=== PATIENT | male | born 1980 | race Caucasian/White ===

== ENCOUNTER 2018-01-21 13:47 | Inpatient (IN) | payer OTHER ==
[2018-01-21 14:07] VITALS: BMI 28.8
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
[2018-01-21] MEDS ORDERED: IBUPROFEN 400 MG TABLET (FP) PO PRN (14:31)
[2018-01-21] MEDS ORDERED: MAGNESIUM CITRATE 300 ML BOTTLE PO PRN (14:31)
[2018-01-21] MEDS ORDERED: ACETAMINOPHEN 325 MG TABLET (FP) PO PRN (14:31)
[2018-01-21] MEDS ORDERED: MENTHOL/PHENOL 1 EACH UD MM PRN (14:31)
[2018-01-21] MEDS ORDERED: P-EPHED 60MG/TRIPROLIDI 2.5MG TABLET PO PRN (14:31)
[2018-01-21] MEDS ORDERED: guaiFENesin/D-METHORPHAN HB 10 ML UNIT-DOSE CUPS PO PRN (14:31)
[2018-01-21] MEDS ORDERED: MAG HYDROX/AL HYDROX/SIMETH 30 ML UNIT-DOSE CUP PO PRN (14:31)
[2018-01-21] MEDS ORDERED: MAGNESIUM HYDROX 2400MG/30ML ORAL SUSPENSION 30 ML CUP PO PRN (14:31)
[2018-01-21] MEDS ORDERED: METHADONE HCL 10 MG TABLET (FOR DETOX USE ONLY) PO ONE ×2 (15:30→23:00)
[2018-01-21] MEDS: diazePAM 5 MG TABLET PO PRN ×2 (17:52→22:58)
[2018-01-21] MEDS: NICOTINE 14 MG/24 HOURS TOPICAL PATCH TD SCH (17:58)
[2018-01-21] MEDS: THIAMINE HCL 100 MG TABLET (FP) PO SCH (22:54)
[2018-01-21] MEDS: MELATONIN 5 MG TABLETS PO PRN (22:55)
[2018-01-21 23:11] LABS: URINE APPEARANCE CLEAR; URINE BILIRUBIN NEGATIVE (<2.0 mg/dL); URINE COLOR YELLOW; URINE GLUCOSE (UA) NEGATIVE (NEGATIVE); URINE KETONE NEGATIVE (NEGATIVE); URINE LEUK ESTERASE NEGATIVE (NEGATIVE); URINE NITRITE NEGATIVE (NEGATIVE); URINE PROTEIN NEGATIVE (NEGATIVE); URINE UROBILINOGEN NEGATIVE mg/dL (0.2-1.0)
[2018-01-22] MEDS ORDERED: METHADONE HCL 10 MG TABLET (FOR DETOX USE ONLY) PO ONE (10:00)
[2018-01-22] MEDS: PRENATAL VITAMINS W/ FOLIC ACID TABLET (FP) PO SCH (10:07)
[2018-01-22] MEDS: diazePAM 5 MG TABLET PO PRN ×2 (10:07→22:10)
[2018-01-22] MEDS: NICOTINE 14 MG/24 HOURS TOPICAL PATCH TD SCH (10:08)
[2018-01-22 12:13] LABS: HEMATOCRIT 45.4 % (35.4-49); HEMOGLOBIN 14.5 GM/dL (11.7-16.9); MCH 28.6 pg (25.7-33.7); MEAN CELL VOLUME 89.1 fl (80-96); PLATELET COUNT 275 K/MM3 (134-434); RBC 5.09 M/mm3 (4.00-5.60); RDW 13.7 % (11.9-15.9); WHITE BLOOD COUNT 6.1 K/mm3 (4.0-10.0)
[2018-01-22 12:20] LABS: ALBUMIN 3.3 g/dl (3.4-5.0); ALK PHOS 54 U/L (45-117); ANION GAP 5 MMOL/L (8-16); BILIRUBIN,TOTAL 0.7 mg/dL (0.2-1); BLOOD UREA NITROGEN 7 mg/dL (7-18); CALCIUM 8.9 mg/dL (8.5-10.1); CHLORIDE 103 mmol/L (98-107); CO2 31 mmol/L (21-32); CREATININE 0.8 mg/dL (0.55-1.3); GLUCOSE,RANDOM 86 mg/dL (74-106); POTASSIUM 4.3 mmol/L (3.5-5.1); SGOT/AST 33 U/L (15-37); SGPT/ALT 37 U/L (13-61); SODIUM 139 mmol/L (136-145); TOT PROT 6.7 g/dl (6.4-8.2)
--- NOTE | 2018-01-22 12:44 | PN ---
S COWS - Scale Resting Pulse: 0= [place] 80 or Below Sweatin=Flushed/Facial Moisture Restless Observation: 1= Difficult to Sit Still Pupil Size: 0= Normal to Room Light Bone or Joint Aches: 2= Severe Diffuse Aches Runny Nose/ Eye Tearin= Runny Nose/Eyes GI Upset > 30mins: 1= Stomach Cramp Tremor Observation of Outstretched Hands: 2= Slight Tremor Visible Yawning Observation: 2= >3x During Session Anxiety or Irritability: 2=Irritable/Anxious Goose Flesh Skin: 3=Piloerection COWS Score: 17 S Progress Note (SOAP) Subjective: irritable agitation anxiety chills sweats shakes interrupted sleep restless Objective: 01/22/18 12:43 Vital Signs Temperature 98.2 F 01/22/18 09:38 Pulse Rate 64 01/22/18 09:38 Respiratory Rate 16 01/22/18 09:38 Blood Pressure 150/94 01/22/18 09:38 O2 Sat by Pulse Oximetry (%) Laboratory Tests 01/21/18 01/22/18 01/22/18 22:00 07:50 07:50 WBC RBC Hgb Hct MCV MCH MCHC RDW Plt Count MPV Sodium 139 Potassium 4.3 Chloride 103 Carbon Dioxide 31 Anion Gap 5 L BUN 7 Creatinine 0.8 Creat Clearance w eGFR > 60 Random Glucose 86 Calcium 8.9 Total Bilirubin 0.7 AST 33 ALT 37 Alkaline Phosphatase 54 Total Protein 6.7 Albumin 3.3 L Urine Color Yellow Urine Appearance Clear Urine pH 7.0 Ur Specific [place] 1.017 Urine Protein Negative Urine Glucose (UA) Negative Urine Ketones Negative Urine Blood Negative Urine Nitrite Negative Urine Bilirubin Negative Urine Urobilinogen Negative Ur Leukocyte Esterase Negative RPR Titer Nonreactive 01/22/18 08:00 WBC 6.1 RBC 5.09 Hgb 14.5 Hct 45.4 MCV 89.1 MCH 28.6 MCHC 32.0 RDW 13.7 Plt Count 275 MPV 7.0 L Sodium Potassium Chloride Carbon Dioxide Anion Gap BUN Creatinine Creat Clearance w eGFR Random Glucose Calcium Total Bilirubin AST ALT Alkaline Phosphatase Total Protein Albumin Urine Color Urine Appearance Urine pH Ur Specific [place] Urine Protein Urine Glucose (UA) Urine Ketones Urine Blood Urine Nitrite Urine Bilirubin Urine Urobilinogen Ur Leukocyte Esterase RPR Titer aaox3 ambulating no acute distress Assessment: 01/22/18 12:43 withdrawal sx Plan: continue detox increase fluids methadone regimen was decreased by 15mg dose not as per pt; however, [employer] added the 15mg dose as per methadone regimen and pt has been made aware and in agreement.
[2018-01-22] MEDS: cloNIDine HCL 0.1 MG TABLET PO SCH ×2 (13:42→22:10)
[2018-01-22] MEDS: MELATONIN 5 MG TABLETS PO PRN (22:10)
[2018-01-22] MEDS: THIAMINE HCL 100 MG TABLET (FP) PO SCH (22:10)
[2018-01-23] MEDS: diazePAM 5 MG TABLET PO PRN ×3 (05:48→22:06)
[2018-01-23] MEDS ORDERED: METHADONE HCL 5 MG TABLET (FOR DETOX USE ONLY) PO ONE ×3 (06:00→10:00)
[2018-01-23] MEDS: PRENATAL VITAMINS W/ FOLIC ACID TABLET (FP) PO SCH (10:13)
[2018-01-23] MEDS: cloNIDine HCL 0.1 MG TABLET PO SCH ×2 (10:13→22:06)
[2018-01-23] MEDS: NICOTINE 14 MG/24 HOURS TOPICAL PATCH TD SCH (10:15)
--- NOTE | 2018-01-23 10:44 | PN ---
S COWS - Scale Resting Pulse: 0= [place] 80 or Below Sweatin= Chills/Flushing Restless Observation: 1= Difficult to Sit Still Pupil Size: 1= Pupils >than Normal Bone or Joint Aches: 2= Severe Diffuse Aches Runny Nose/ Eye Tearin= Nasal Congestion GI Upset > 30mins: 2= Nausea/Diarrhea Tremor Observation of Outstretched Hands: 2= Slight Tremor Visible Yawning Observation: 1= 1-2x During Session Anxiety or Irritability: 2=Irritable/Anxious Goose Flesh Skin: 0=Smooth Skin COWS Score: 13 BHS Progress Note (SOAP) Subjective: back pain anxiety restlessness reported long history of anxiety requested to see a psychiatrist Objective: 01/23/18 10:48 Vital Signs Temperature 97.7 F 01/23/18 09:32 Pulse Rate 53 L 01/23/18 09:32 Respiratory Rate 16 01/23/18 09:32 Blood Pressure 129/67 01/23/18 09:32 O2 Sat by Pulse Oximetry (%) Laboratory Last Values WBC 6.1 K/mm3 (4.0-10.0) 01/22/18 08:00 RBC 5.09 M/mm3 (4.00-5.60) 01/22/18 08:00 Hgb 14.5 GM/dL (11.7-16.9) 01/22/18 08:00 Hct 45.4 % (35.4-49) 01/22/18 08:00 MCV 89.1 fl (80-96) 01/22/18 08:00 MCH 28.6 pg (25.7-33.7) 01/22/18 08:00 MCHC 32.0 g/dl (32.0-35.9) 01/22/18 08:00 RDW 13.7 % (11.9-15.9) 01/22/18 08:00 Plt Count 275 K/MM3 (134-434) 01/22/18 08:00 MPV 7.0 fl (7.5-11.1) L 01/22/18 08:00 Sodium 139 mmol/L (136-145) 01/22/18 07:50 Potassium 4.3 mmol/L (3.5-5.1) 01/22/18 07:50 Chloride 103 mmol/L (98-107) 01/22/18 07:50 Carbon Dioxide 31 mmol/L (21-32) 01/22/18 07:50 Anion Gap 5 MMOL/L (8-16) L 01/22/18 07:50 BUN 7 mg/dL (7-18) 01/22/18 07:50 Creatinine 0.8 mg/dL (0.55-1.3) 01/22/18 07:50 Creat Clearance w eGFR > 60 (>60) 01/22/18 07:50 Random Glucose 86 mg/dL (74-106) 01/22/18 07:50 Calcium 8.9 mg/dL (8.5-10.1) 01/22/18 07:50 Total Bilirubin 0.7 mg/dL (0.2-1) 01/22/18 07:50 AST 33 U/L (15-37) 01/22/18 07:50 ALT 37 U/L (13-61) 01/22/18 07:50 Alkaline Phosphatase 54 U/L (45-117) 01/22/18 07:50 Total Protein 6.7 g/dl (6.4-8.2) 01/22/18 07:50 Albumin 3.3 g/dl (3.4-5.0) L 01/22/18 07:50 Urine Color Yellow 01/21/18 22:00 Urine Appearance Clear 01/21/18 22:00 Urine pH 7.0 (5.0-8.0) 01/21/18 22:00 Ur Specific [place] 1.017 (1.010-1.035) 01/21/18 22:00 Urine Protein Negative (NEGATIVE) 01/21/18 22:00 Urine Glucose (UA) Negative (NEGATIVE) 01/21/18 22:00 Urine Ketones Negative (NEGATIVE) 01/21/18 22:00 Urine Blood Negative (NEGATIVE) 01/21/18 22:00 Urine Nitrite Negative (NEGATIVE) 01/21/18 22:00 Urine Bilirubin Negative (<2.0 mg/dL) 01/21/18 22:00 Urine Urobilinogen Negative mg/dL (0.2-1.0) 01/21/18 22:00 Ur Leukocyte Esterase Negative (NEGATIVE) 01/21/18 22:00 RPR Titer Nonreactive (NONREACTIVE) 01/22/18 07:50 lab noted Assessment: 01/23/18 10:48 withdrawal sx psy referral anxiety Plan: continue detox
[2018-01-23] MEDS: THIAMINE HCL 100 MG TABLET (FP) PO SCH (22:07)
[2018-01-23] MEDS: MELATONIN 5 MG TABLETS PO PRN (22:07)
[2018-01-24] MEDS ORDERED: METHADONE HCL 10 MG TABLET (FOR DETOX USE ONLY) PO ONE ×2 (10:00)
[2018-01-24] MEDS: PRENATAL VITAMINS W/ FOLIC ACID TABLET (FP) PO SCH (10:24)
[2018-01-24] MEDS: NICOTINE 14 MG/24 HOURS TOPICAL PATCH TD SCH (10:24)
[2018-01-24] MEDS ORDERED: METHADONE HCL 5 MG TABLET (FOR DETOX USE ONLY) PO ONE ×2 (10:45)
--- NOTE | 2018-01-24 10:48 | CONSULT ---
[facility] Psychiatric Consult - Data Date of interview: 01/24/18 Admission source: [facility] Identifying data: This is a 37 years old male, single, living with family, unemployed, homeless, with no financial support, with no psychiatric hospitalization history, history of Alcohol, Opioids and Nicotine dependence, reports withdrawal symnptoms and seeking detox. Substance Abuse History: Smoking history: Current every day smoker. Have you smoked in the past 12 months: Yes. Aproximately how many cigarettes per day: 20. If you are a former smoker, when did you quit?: 3 YRS AGO. Hx Chewing Tobacco Use: No. Initiated information on smoking cessation: No. - Substances Abused. Heroin. Route: Injection. Frequency: Daily. Amount used: 20 BAGS. Age of first use: 11. Date of Last Use: 01/21/18. Alprazolam (Xanax) . Route: Oral. Frequency: Daily. Amount used: 4-6MG. Age of first use: 36. Date of Last Use: 01/20/18 Medical History: HepC+, HTN, MMTP history Psychiatric History: Patient reports history of depression and anxiety, reports no medications taking priuor to admissionl, reports nho suicidal, homicidal history. Physical/Sexual Abuse/Trauma History: Denies Additional Comment: Observation. Detox Unit Care Protocol Mental Status Exam - Mental Status Exam Alert and Oriented to: Person Patient Appearance: Unkempt Mood: Sad Affect: Flat Patient Behavior: Sedated Speech Pattern: Delayed Voice Loudness: Mildly Soft/Quiet Thought Process: Circumstantial, Goal Oriented Thought Disorder: Being Controlled Hallucinations: Denies Suicidal Ideation: Denies Homicidal Ideation: Denies Insight/Judgement: Fair Sleep: Difficulty falling asleep Appetite: Fair Muscle strength/Tone: Normal Gait/Station: Shuffling Additional Comments: Observation. Detox Unit Care Protocol Psychiatric Findings - Problem List ([place] 1, 2,3) (1) Nicotine dependence Current Visit: Yes Status: Acute Qualifiers: Nicotine product type: cigarettes (2) Drug-induced mood disorder Current Visit: No Status: Acute (3) Opioid dependence with withdrawal Current Visit: No Status: Acute (4) Sedative, hypnotic or anxiolytic dependence with withdrawal, uncomplicated Current Visit: No Status: Acute - Initial Treatment Plan Initial Treatment Plan: Observation. Detox Unit Care Protocol
[2018-01-24] MEDS: cloNIDine HCL 0.1 MG TABLET PO SCH ×2 (11:06→23:26)
[2018-01-24] MEDS: diazePAM 5 MG TABLET PO PRN (11:08)
--- NOTE | 2018-01-24 11:10 | PN ---
BHS Progress Note (SOAP) Subjective: agitation irritable difficulty sleeping Objective: 01/24/18 11:13 Vital Signs Temperature 98.1 F 01/24/18 10:30 Pulse Rate 58 L 01/24/18 10:30 Respiratory Rate 18 01/24/18 10:30 Blood Pressure 122/78 01/24/18 10:30 O2 Sat by Pulse Oximetry (%) aaox3 ambulating no acute distress Assessment: 01/24/18 11:13 withdrawal sx Plan: continue detox increase fluids psych ordered for re-evaluate regarding insomnia
[2018-01-24] MEDS: MELATONIN 5 MG TABLETS PO PRN (22:15)
[2018-01-24] MEDS: THIAMINE HCL 100 MG TABLET (FP) PO SCH (22:15)
[2018-01-25] MEDS ORDERED: METHADONE HCL 5 MG TABLET (FOR DETOX USE ONLY) PO ONE ×2 (06:00→10:00)
[2018-01-25] MEDS ORDERED: METHADONE HCL 10 MG TABLET (FOR DETOX USE ONLY) PO ONE (10:00)
[2018-01-25] MEDS: NICOTINE 14 MG/24 HOURS TOPICAL PATCH TD SCH (10:11)
[2018-01-25] MEDS: cloNIDine HCL 0.1 MG TABLET PO SCH ×2 (10:11→22:35)
[2018-01-25] MEDS: PRENATAL VITAMINS W/ FOLIC ACID TABLET (FP) PO SCH (10:11)
[2018-01-25] MEDS ORDERED: hydrOXYzine PAMOATE 50 MG CAPSULE (FP) PO PRN (10:15)
[2018-01-25] MEDS ORDERED: diazePAM 5 MG TABLET PO ONE ×2 (10:16→10:44)
--- NOTE | 2018-01-25 11:07 | PN ---
BHS Progress Note (SOAP) Subjective: anxiety sweats irritable interrupted sleep Objective: 01/25/18 11:08 Vital Signs Temperature 96.8 F L 01/25/18 09:33 Pulse Rate 66 01/25/18 09:33 Respiratory Rate 18 01/25/18 09:33 Blood Pressure 127/69 01/25/18 09:33 O2 Sat by Pulse Oximetry (%) aaox3 ambulating no acute distress Assessment: 01/25/18 11:08 withdrawal sx Plan: continue detox increase fluids valium 5mg x one ordered visitril 50mg ordered prn d/c in am
[2018-01-25] MEDS ORDERED: traZODone HCL 50 MG TABLET (FP) PO SCH (22:00)
[2018-01-25] MEDS: THIAMINE HCL 100 MG TABLET (FP) PO SCH (22:37)
[2018-01-26] MEDS ORDERED: METHADONE HCL 5 MG TABLET (FOR DETOX USE ONLY) PO ONE (06:00)
[2018-01-26 09:17] VITALS: BP 107/62; PULSE 83; TEMP 96.4
--- NOTE | 2018-01-26 09:19 | DS ---
[facility] Detox Discharge Summary Admission Date: 01/21/18 Discharge Date: 01/26/18 - History Present History: Opioid Dependence, Sedative Dependence - Physical Exam Results Vital Signs: Vital Signs Temperature 96.4 F L 01/26/18 09:17 Pulse Rate 83 01/26/18 09:17 Respiratory Rate 18 01/26/18 09:17 Blood Pressure 107/62 01/26/18 09:17 O2 Sat by Pulse Oximetry (%) - Treatment Hospital Course: Detox Protocol Followed, Detoxed Safely, Responded well, Discharged Condition Good, Rehab Referral Accepted - Medication Discharge Medications: Ambulatory Orders NK [No Known Home Medication] 01/21/18 - Diagnosis (1) Nicotine dependence Current Visit: Yes Status: Chronic Qualifiers: Nicotine product type: cigarettes Substance use status: uncomplicated Qualified Code(s): F17.210 - Nicotine dependence, cigarettes, uncomplicated (2) Drug-induced mood disorder Current Visit: No Status: Acute (3) Opioid dependence with withdrawal Current Visit: Yes Status: Chronic (4) Sedative, hypnotic or anxiolytic dependence with withdrawal, uncomplicated Current Visit: Yes Status: Chronic (5) Hepatitis C Current Visit: No Status: Chronic Qualifiers: Viral hepatitis chronicity: chronic Hepatic coma status: without hepatic coma Qualified Code(s): B18.2 - Chronic viral hepatitis C (6) Hypertension Current Visit: Yes Status: Chronic Qualifiers: Hypertension type: essential hypertension Qualified Code(s): I10 - Essential (primary) hypertension - AMA Did Patient Leave Against Medical Advice: No (referred to [facility] rehab)
[2018-01-26] MEDS: NICOTINE 14 MG/24 HOURS TOPICAL PATCH TD SCH (10:12)
[2018-01-26] MEDS: cloNIDine HCL 0.1 MG TABLET PO SCH (10:12)
[2018-01-26] MEDS: PRENATAL VITAMINS W/ FOLIC ACID TABLET (FP) PO SCH (10:12)
== END 2018-01-26 10:38 | disposition home or self-care (01) | DRG 773 ==
LOC: YASAS 13:47 → Y6N 15:21
PROVIDERS: ADMIT Neuromusculoskeletal Medicine & OMM; ATTEND Neuromusculoskeletal Medicine & OMM
PROC: HZ2ZZZZ Detoxification Services for Substance Abuse Treatment (ICD-10-PCS; principal; 2018-01-21)
DX: F11.23 Opioid dependence with withdrawal (principal); F13.230 Sedative, hypnotic or anxiolytic dependence with withdrawal, uncomplicated; F17.210 Nicotine dependence, cigarettes, uncomplicated; F19.24 Other psychoactive substance dependence with psychoactive substance-induced mood disorder; F41.9 Anxiety disorder, unspecified; I10 Essential (primary) hypertension; B18.2 Chronic viral hepatitis C
CPT/HCPCS: 36415; 80053; 81003; 85027; 86593; J0735